=== PATIENT | female | born 1960 | race African-American/Black ===

== ENCOUNTER 2017-12-26 20:37 | Observation (INO) | payer BC ==
[2017-12-26 21:04] VITALS: BP 150/82; PULSE 93; RESP 18; TEMP 98.5; O2SAT 99
--- NOTE | 2017-12-26 22:08 | RADRPT ---
EXAM DATE: 12/26/2017 9:40 PM EDT AGE/SEX: 57 years / Female INDICATIONS: Left chest pain and shortness of breath. CLINICAL DATA: This is the patient's initial encounter. Patient reports that signs and symptoms have been present for 2 days and indicates a pain score of 7/10. MEDICAL/SURGICAL HISTORY: None. None. COMPARISON: No prior [place] exams available for comparison. FINDINGS: There is peribronchial thickening. Minimal subsegmental basilar opacity may represent scarring or ate lectasis. No significant effusion. Tortuous aorta. Heart size upper limits normal. No pneumothorax. CONCLUSION: Peribronchial thickening. Subsegmental basilar airspace disease without significant effusion. Electronically signed by: Roscoe Abdi MD 12/26/2017 10:06 PM EDT
[2017-12-26 23:26] VITALS: BP 146/80; PULSE 86; RESP 18; O2SAT 96
[2017-12-26] MEDS ORDERED: PRIL20TA2 PO (23:32)
[2017-12-26] MEDS ORDERED: LISI20TA3 PO (23:33)
[2017-12-26] MEDS ORDERED: FLUO-1 PO (23:33)
[2017-12-26 23:49] LABS: AUTOMATED NEUTROPHIL # 6.8 TH/MM3 (1.8-7.7); BASOPHIL # 0.1 TH/MM3 (0-0.2); BASOPHIL % 1.3 % (0.0-2.0); EOSINOPHIL # 0.2 TH/MM3 (0-0.4); EOSINOPHIL % 2.1 % (0.0-4.0); HEMATOCRIT 37.9 % (35.0-46.0); HEMOGLOBIN 12.6 GM/DL (11.6-15.3); LYMPH % 21.9 % (9.0-44.0); LYMPHOCYTE # 2.2 TH/MM3 (1.0-4.8); MEAN CELL VOLUME 83.8 FL (80.0-100.0); MEAN CORPUSCULAR HEMOGLOBIN 27.8 PG (27.0-34.0); MEAN CORPUSCULAR HGB CONC 33.2 % (32.0-36.0); MEAN PLATELET VOLUME 9.6 FL (7.0-11.0); MONO % 6.9 % (0.0-8.0); MONOCYTE # 0.7 TH/MM3 (0-0.9); NEUT % 67.8 % (16.0-70.0); PLATELET COUNT 210 TH/MM3 (150-450); RED BLOOD COUNT 4.53 MIL/MM3 (4.00-5.30)
[2017-12-26 23:58] LABS: PROTHROMBIN TIME - PATIENT 10.3 SEC (9.8-11.6)
--- NOTE | 2017-12-27 00:15 | PD ---
HPI Chief Complaint: Respiratory Symptoms Time Seen by Provider: 23:15 Travel History International Travel<30 days: No Contact w/Intl Traveler<30days: No History of Present Illness HPI The patient is a 57 year old female who presents to the [facility] emergency department with a history of left-sided chest pain that she reports began on Tuesday night. The patient reports that she arrived in the area on Tuesday from [place]. She reports that on Tuesday she began to have congestion, dry cough, sensation of wheezing. She attributed this to allergy symptoms and took an allergy reliever that was [id number]. She reports that the symptoms did not improve. She reports that she has had a clear rhinorrhea. She has not had any known fevers. She reports that she began to have a left-sided chest pain that is sharp in character on Tuesday night. She reports that it was constant on Tuesday, however now it is coming and going again. She reports having associated shortness of breath. She reports that she also had diaphoresis. She denies having any nausea or vomiting. She denies having any diarrhea. She reports that she has been moving her bowels regularly. She denies any personal history of coronary artery disease, DVT, or PE. She denies any family history of coronary artery disease. She does report smoking 1 pack of cigarettes per day. She also reports having a history of hypertension. She denies any prior history of diabetes or hyperlipidemia. She denies having any lower extremity edema, calf pain, or erythema. The patient reports that the pain at times radiates into the left side of her back. On review of systems otherwise, she denies having any neck pain, abdominal pain, diarrhea, urinary symptoms, or neurologic symptoms. [facility] Past Medical History Narrative Medical The patient's past medical history is significant for hypertension, acid reflux. GERD: Yes Hypertension: Yes Past Surgical History Narrative Surgical The patient's past surgical history is significant for a hysterectomy with oophorectomy for fibroids Gynecologic Surgery: Yes Hysterectomy: Yes Social History Alcohol Use: No Tobacco Use: Yes (5 cigarettes per day) Substance Use: No Allergies-Medications (Allergen,Severity, Reaction): Coded Allergies: Penicillins (Verified Allergy, Severe, 12/26/17) Sulfa (Sulfonamide Antibiotics) (Verified Allergy, Severe, 12/26/17) doxycycline (Verified Allergy, Severe, 12/26/17) THROAT SWELLING Reported Meds & Prescriptions Reported Meds & Active Scripts Active Reported Prozac (Fluoxetine HCl) 10 Mg Cap 10 Mg PO DAILY Lisinopril-Hctz 20-25 Mg Tab 1 Tab PO DAILY Prilosec (Omeprazole Magnesium) 20 Mg Tab 40 Mg PO DAILY Review of Systems Except as stated in HPI: all other systems reviewed are Neg General / Constitutional: No: Fever Eyes: No: Visual changes HENT: No: Headaches, Rhinorrhea, Congestion Cardiovascular: Positive: Chest Pain or Discomfort, Diaphoresis, Dyspnea on exertion Respiratory: Positive: Shortness of Breath Gastrointestinal: No: Nausea, Vomiting, Diarrhea, Abdominal Pain Genitourinary: No: Dysuria Musculoskeletal: No: Pain Skin: No Rash Neurologic: No: Weakness Psychiatric: No: Depression Endocrine: No: Polydipsia Hematologic/Lymphatic: No: Easy Bruising Physical Exam Narrative General: The patient is a well-developed well-nourished female in no acute distress Head and Neck exam: Head is normocephalic atraumatic. Eyes: EOMI, pupils are equal round and reactive to light. Nose: Midline septum with pink mucous membranes Mouth: Dentition unremarkable. Moist mucus membranes. Posterior oropharynx is not erythematous. No tonsillar hypertrophy. Uvula midline. Airway patent. Neck: No palpable lymphadenopathy. No nuchal rigidity. No thyromegaly. Cardiovascular: Regular rate and rhythm without murmurs, gallops, or rubs. No pulse deficit to the extremities on simultaneous auscultation and palpation of her radial artery. Lungs: Clear to auscultation bilaterally. No wheezes, rhonchi, or rales. Abdomen: Soft, without tenderness to palpation in all 4 quadrants of the abdomen. No guarding, rebound, or rigidity. Normal bowel sounds are audible. No tenderness on palpation of McBurney's point. Negative Mott sign. Extremities: No clubbing, cyanosis, or edema. 2+ pulses in all 4 extremities. No calf tenderness on palpation. Back: No spinous process tenderness to palpation. No costovertebral angle tenderness to palpation. Neurologic Exam: Grossly nonfocal. Skin Exam: No rash noted. Intact skin that is warm and dry. Data Data Last Documented VS Vital Signs Date Time Temp Pulse Resp B/P (MAP) Pulse Ox O2 Delivery O2 Flow Rate FiO2 12/26/17 23:26 94 18 95 Room Air 12/26/17 23:26 146/80 (102) 12/26/17 21:04 98.5 Orders Orders Electrocardiogram (12/26/17 21:08) Chest, Pa & Lat (12/26/17 21:08) Complete Blood Count With Diff (12/26/17 23:16) Comprehensive Metabolic Panel (12/26/17 23:16) Creatine Kinase (Cpk) (12/26/17 23:16) Ckmb (Isoenzyme) Profile (12/26/17 23:16) Troponin I (12/26/17 23:16) B-Type Natriuretic Peptide (12/26/17 23:16) Prothrombin Time / Inr (Pt) (12/26/17 23:16) Act Partial Throm Time (Ptt) (12/26/17 23:16) Lipase (12/26/17 23:16) Urinalysis - C+S If Indicated (12/26/17 23:16) Magnesium (Mg) (12/26/17 23:16) Iv Access Insert/Monitor (12/26/17 23:16) Ecg Monitoring (12/26/17 23:16) Oximetry (12/26/17 23:16) CKMB (12/26/17 23:32) CKMB% (12/26/17 23:32) Aspirin Chew (Aspirin Chew) (12/27/17 00:45) Nitroglycerin 2% Oint (Nitroglycerin 2% (12/27/17 00:45) Ct Pulmonary Angiogram (12/27/17 01:04) Iohexol 350 Inj (Omnipaque 350 Inj) (12/27/17 01:38) Admit Order (Ed Use Only) (12/27/17 01:57) Famotidine Inj (Pepcid Inj) (12/27/17 02:00) Labs Laboratory Tests Test 12/26/17 23:32 White Blood Count 10.0 TH/MM3 Red Blood Count 4.53 MIL/MM3 Hemoglobin 12.6 GM/DL Hematocrit 37.9 % Mean Corpuscular Volume 83.8 FL Mean Corpuscular Hemoglobin 27.8 PG Mean Corpuscular Hemoglobin Concent 33.2 % Red Cell Distribution Width 15.0 % Platelet Count 210 TH/MM3 Mean Platelet Volume 9.6 FL Neutrophils (%) (Auto) 67.8 % Lymphocytes (%) (Auto) 21.9 % Monocytes (%) (Auto) 6.9 % Eosinophils (%) (Auto) 2.1 % Basophils (%) (Auto) 1.3 % Neutrophils # (Auto) 6.8 TH/MM3 Lymphocytes # (Auto) 2.2 TH/MM3 Monocytes # (Auto) 0.7 TH/MM3 Eosinophils # (Auto) 0.2 TH/MM3 Basophils # (Auto) 0.1 TH/MM3 CBC Comment DIFF FINAL Differential Comment Prothrombin Time 10.3 SEC Prothromb Time International Ratio 1.0 RATIO Activated Partial Thromboplast Time 25.7 SEC Blood Urea Nitrogen 11 MG/DL Creatinine 0.87 MG/DL Random Glucose 99 MG/DL Total Protein 7.8 GM/DL Albumin 3.5 GM/DL Calcium Level 9.6 MG/DL Magnesium Level 2.3 MG/DL Alkaline Phosphatase 109 U/L Aspartate Amino Transf (AST/SGOT) 16 U/L Alanine Aminotransferase (ALT/SGPT) 20 U/L Total Bilirubin 0.4 MG/DL Sodium Level 139 MEQ/L Potassium Level 3.8 MEQ/L Chloride Level 105 MEQ/L Carbon Dioxide Level 24.7 MEQ/L Anion Gap 9 MEQ/L Estimat Glomerular Filtration Rate 81 ML/MIN Total Creatine Kinase 157 U/L Creatine Kinase MB 0.7 NG/ML Troponin I LESS THAN 0.02 NG/ML B-Type Natriuretic Peptide 2 PG/ML Lipase 76 U/L MDM Medical Decision Making Medical Screen Exam Complete: Yes Emergency Medical Condition: Yes Medical Record Reviewed: Yes Differential Diagnosis Acute coronary syndrome, versus pulmonary embolism, versus acid reflux, versus costochondritis, versus musculoskeletal strain, versus pancreatitis, versus anxiety disorder Narrative Course During the course of the patient's emergency department visit, the patient's history, examination, and differential diagnosis were reviewed with the patient. The patient was placed on a podiatric foot and ankle specialist with oximetry and frequent blood pressure monitoring. The patient had IV access obtained and blood work sent for analysis. The patient had an EKG done on arrival that shows a sinus rhythm heart rate of respiration is 89 ms, QTC [address] segment elevation is noted. T waves are inverted in V1. The patient was initially provided nitroglycerin 1 inch to the chest wall, aspirin 324 mg p.o. 1. The patient's laboratory studies were reviewed and remarkable for a CBC that is within normal limits, CMP is remarkable for GFR of 81, cardiac enzymes within normal limits, lipase 76, BNP 2, PT PTT within normal limits. Radiology studies were reviewed and remarkable for Last Impressions CT Angiography 12/27/17 0104 Signed Impressions: CONCLUSION: 1. There is poor opacification of the pulmonary arteries limiting the evaluati on for PE. If this requires further evaluation of VQ scan could be performed if clinically indicated. 2. No acute pulmonary infiltrates. Lung Scan-VQ Nuclear Medicine 12/27/17 0000 Signed Impressions: CONCLUSION: 1. No mismatches are identified. No evidence of pulmonary malignancy Chest X-Ray 12/26/17 2108 Signed Impressions: CONCLUSION: Peribronchial thickening. Subsegmental basilar airspace disease without signifi cant effusion. The patient will be admitted to the chest pain center for rule out serial cardiac enzyme protocol followed by consideration of stress testing. The patient's results were discussed with the patient, including the plan of care. I explained that further testing and/ or monitoring is indicated based on the patient's history, examination, and/ or laboratory findings. Therefore, I recommended admission for additional evaluation. The patient expressed understanding and was agreeable with this plan. The patient was admitted to the hospital in stable condition and sent to a bed under the care of [facility]. Diagnosis Primary Impression: Chest pain, rule out acute myocardial infarction Admitting Information Admitting Physician Requests: Margarita Payne MD Dec 27, 2017 00:15
[2017-12-27 00:19] LABS: ALT (GPT) 20 U/L (10-53)
[2017-12-27 00:23] LABS: ALKALINE PHOSPHATASE 109 U/L (45-117); TOTAL BILIRUBIN ADULT 0.4 MG/DL (0.2-1.0); TOTAL PROTEIN 7.8 GM/DL (6.4-8.2); TROPONIN I LESS THAN 0.02 NG/ML (0.02-0.05)
[2017-12-27 00:37] LABS: ALBUMIN 3.5 GM/DL (3.4-5.0); AST (GOT) 16 U/L (15-37); BICARBONATE 24.7 MEQ/L (21.0-32.0); BLOOD UREA NITROGEN 11 MG/DL (7-18); CALCIUM 9.6 MG/DL (8.5-10.1); CHLORIDE 105 MEQ/L (98-107); CREATININE 0.87 MG/DL (0.50-1.00); GLOMERULAR FILTRATION RATE 81 ML/MIN (>89); GLUCOSE,RANDOM 99 MG/DL (74-106); MAGNESIUM 2.3 MG/DL (1.5-2.5); SODIUM (NA) 139 MEQ/L (136-145)
[2017-12-27] MEDS ORDERED: ASPIRIN 81 MG CHEW TAB CHEW ONE (00:45)
[2017-12-27] MEDS ORDERED: NITROGLYCERIN 2% OINT 1 GM PACKET TOPICAL ONE (00:45)
[2017-12-27] MEDS ORDERED: IOHEXOL 350 MG/ML 10 ML VIAL (for RAD DIAG) IVCONTRAST ONE (01:38)
--- NOTE | 2017-12-27 01:53 | RADRPT ---
EXAM DATE: 12/27/2017 1:42 AM EDT AGE/SEX: 57 years / Female INDICATIONS: Chest pain with shorthness of breath. CLINICAL DATA: This is the patient's initial encounter. Patient reports that signs and symptoms have been present for 1 day and indicates a pain score of 10/10. MEDICAL/SURGICAL HISTORY: Hypertension. Gastroesophageal reflux disease. Hysterectomy. RADIATION DOSE: 23.38 CTDI (mGy) COMPARISON: No prior [place] exams available for comparison. TECHNIQUE: Volumetric scanning was performed using a multi-row detector CT scanner during bolus infu cristal of 70 ml Omnipaque 350 (iohexol) nonionic water-soluble contrast as a single exam dose. The marium a was post processed with a variety of visualization algorithms including full volume maximum intensi ty projection and sliding thin slab reformation. Using automated exposure control and adjustment of the mA and/or kV according to patient size, radiation dose was kept as low as reasonably achievable t o obtain optimal diagnostic quality images. FINDINGS: Pulmonary Arteries: Poor opacification of pulmonary arteries. Lung: No infiltrates seen. Effusion: None. Mediastinum: No evidence of mediastinal or hilar adenopathy. Other: The axilla is unremarkable. CONCLUSION: 1. There is poor opacification of the pulmonary arteries limiting the evaluation for PE. If this req uires further evaluation of VQ scan could be performed if clinically indicated. 2. No acute pulmonary infiltrates. Electronically signed by: Jin Anderson MD 12/27/2017 1:52 AM EDT
[2017-12-27] MEDS ORDERED: FAMOTIDINE 20 MG/2 ML VIAL IV PUSH SCH (02:00)
[2017-12-27] MEDS ORDERED: SODIUM CHLORIDE 0.9% FLUSH 10 ML FLUSH IV FLUSH PRN (03:00)
[2017-12-27] MEDS ORDERED: ACETAMINOPHEN 500 MG CPLT PO PRN (03:00)
[2017-12-27 04:20] LABS: BACTERIA, URINE OCC /hpf; BILIRUBIN, URINE NEG (NEG); BLOOD, URINE MOD (NEG); GLUCOSE,URINE NEG (NEG); KETONE, URINE NEG (NEG); MUCUS URINE FEW /lpf (OCC); NITRITE,URINE NEG (NEG); PH, URINE 6.5 (5.0-8.5); SQUAMOUS EPITHELIAL CELL URINE 21 /hpf (0-5); URINE COLOR YELLOW (YELLW/STRAW); URINE LEUKOCYTE ESTERASE MOD (NEG)
[2017-12-27 04:35] LABS: TROPONIN I LESS THAN 0.02 NG/ML (0.02-0.05)
[2017-12-27 06:38] VITALS: BP 136/64; PULSE 88; RESP 18; TEMP 98.4
[2017-12-27 07:15] LABS: TROPONIN I LESS THAN 0.02 NG/ML (0.02-0.05)
[2017-12-27 08:00] VITALS: BP 98/52; PULSE 98; RESP 20; TEMP 98.4; O2SAT 94
[2017-12-27] MEDS ORDERED: RESP: ALBUTEROL 2.5 MG/IPRATROPIUM 0.5 MG NEB (SCH) NEB ONE (08:30)
[2017-12-27 08:35] VITALS: PULSE 92
[2017-12-27] MEDS ORDERED: SODIUM CHLORIDE 0.9% FLUSH 10 ML FLUSH IV FLUSH SCH (09:00)
--- NOTE | 2017-12-27 10:25 | HHI.HP ---
HPI Primary Care Physician Unknown Chief Complaint Chest pain History of Present Illness This is a 57-year-old female history of hypertension that presents to ED via private vehicle with complaint of developing left-sided chest discomfort that began 4 days ago. It is intermittent. Lasts a few minutes. She has not really been short of breath but states she has had a nonproductive cough over the last few days. States that she drove with her from [place] 5 days ago. Denies swelling in legs. Denies inspirational chest discomfort. Denies fevers or chills. She denies diaphoresis and nausea. Review of Systems General: Patient denies fevers, chills. Recently drove from [place]. HEENT: Patient denies headache, sore throat, difficulty swallowing. Cardiovascular: Has the chest discomfort as mentioned above. Denies sensation of heart beating rapidly or irregularly. No syncope. Denies diaphoresis. Respiratory: She has had a nonproductive cough. Denies wheezing or hemoptysis. Denies shortness of breath or inspirational chest discomfort. GI: Patient denies nausea, vomiting, diarrhea, abdominal pain, bloody stools. Musculoskeletal: Patient denies joint pain or edema. Denies calf pain or edema. Neurovascular: Patient denies numbness, tingling, weakness in extremities. Denies headache. Endocrine: Denies polyuria and polydipsia. Hematologic: Denies easy bruising. Skin: Denies rash or itching. Past Family Social History Allergies: Coded Allergies: Penicillins (Verified Allergy, Severe, 12/26/17) Sulfa (Sulfonamide Antibiotics) (Verified Allergy, Severe, 12/26/17) doxycycline (Verified Allergy, Severe, 12/26/17) THROAT SWELLING Past Medical History Hypertension and GERD. Tobacco abuse. Denies hyperlipidemia and known CAD. Past Surgical History Hysterectomy. Reported Medications Reported Meds & Active Scripts Active Reported Prozac (Fluoxetine HCl) 10 Mg Cap 10 Mg PO DAILY Lisinopril-Hctz 20-25 Mg Tab 1 Tab PO DAILY Prilosec (Omeprazole Magnesium) 20 Mg Tab 40 Mg PO DAILY Active Ordered Medications Current Medications Medications (Trade) Dose Ordered Sig/Shayy Route Start Time Stop Time Status Last Admin (Pepcid Inj) 20 mg NOW IV PUSH 12/27/17 02:00 (NS Flush) 2 ml UNSCH PRN IV FLUSH 12/27/17 03:00 (NS Flush) 2 ml BID IV FLUSH 12/27/17 09:00 (Tylenol) 500 mg Q4H PRN PO 12/27/17 03:00 (Duoneb Neb) 1 ampule Q4HR NEB PRN NEB 12/27/17 12:00 Family History Denies family history of CAD. Social History Smokes 1 pack of cigarettes daily. Denies alcohol or illicit drug use. Physical Exam Vital Signs Vital Signs Date Time Temp Pulse Resp B/P (MAP) Pulse Ox O2 Delivery O2 Flow Rate FiO2 12/27/17 08:00 98.4 98 20 98/52 (67) 94 12/27/17 06:38 98.4 88 18 136/64 (88) 12/27/17 03:51 12/26/17 23:26 94 18 95 Room Air 12/26/17 23:26 86 18 146/80 (102) 96 Room Air 12/26/17 21:04 98.5 93 18 150/82 (104) 99 Physical Exam GENERAL: This is a well-nourished, well-developed patient, in no apparent distress. Patient speaks in clear complete sentences. Patient is pleasant. HEENT: Head is atraumatic and normocephalic. Neck is supple without lymphadenopathy and trachea is midline. No JVD or carotid bruits. CARDIOVASCULAR: Regular rate and rhythm without murmurs, gallops, or rubs. RESPIRATORY: Clear to auscultation. Breath sounds equal bilaterally. No wheezes , rales, or rhonchi. Chest wall is nontender. No use of accessory muscles. GASTROINTESTINAL: Abdomen is nontender, nondistended. Abdomen soft. No obvious pulsatile mass or bruit. No CVA tenderness. Strong femoral pulses bilaterally. Normal bowel sounds in all quadrants. MUSCULOSKELETAL: Patient is moving upper and lower extremities freely. No calf tenderness or edema, no Homans sign. Strong pulses in upper and lower extremities. NEUROLOGICAL: Patient is alert and oriented. Cranial nerves 2-12 are grossly intact. No focal deficits and speech is clear. SKIN: No rash and turgor is normal. Laboratory Laboratory Tests Test 12/26/17 23:32 12/27/17 02:50 12/27/17 03:40 12/27/17 06:05 White Blood Count 10.0 Red Blood Count 4.53 Hemoglobin 12.6 Hematocrit 37.9 Mean Corpuscular Volume 83.8 Mean Corpuscular Hemoglobin 27.8 Mean Corpuscular Hemoglobin Concent 33.2 Red Cell Distribution Width 15.0 Platelet Count 210 Mean Platelet Volume 9.6 Neutrophils (%) (Auto) 67.8 Lymphocytes (%) (Auto) 21.9 Monocytes (%) (Auto) 6.9 Eosinophils (%) (Auto) 2.1 Basophils (%) (Auto) 1.3 Neutrophils # (Auto) 6.8 Lymphocytes # (Auto) 2.2 Monocytes # (Auto) 0.7 Eosinophils # (Auto) 0.2 Basophils # (Auto) 0.1 CBC Comment DIFF FINAL Differential Comment Prothrombin Time 10.3 Prothromb Time International Ratio 1.0 Activated Partial Thromboplast Time 25.7 Blood Urea Nitrogen 11 Creatinine 0.87 Random Glucose 99 Total Protein 7.8 Albumin 3.5 Calcium Level 9.6 Magnesium Level 2.3 Alkaline Phosphatase 109 Aspartate Amino Transf (AST/SGOT) 16 Alanine Aminotransferase (ALT/SGPT) 20 Total Bilirubin 0.4 Sodium Level 139 Potassium Level 3.8 Chloride Level 105 Carbon Dioxide Level 24.7 Anion Gap 9 Estimat Glomerular Filtration Rate 81 Total Creatine Kinase 157 130 130 Creatine Kinase MB 0.7 LESS THAN 0.5 1.0 Troponin I LESS THAN 0.02 LESS THAN 0.02 LESS THAN 0.02 B-Type Natriuretic Peptide 2 Lipase 76 Urine Color YELLOW Urine Turbidity HAZY Urine pH 6.5 Urine Specific [place] GREATER THAN 1.050 Urine Protein 30 Urine Glucose (UA) NEG Urine Ketones NEG Urine Occult Blood MOD Urine Nitrite NEG Urine Bilirubin NEG Urine Urobilinogen LESS THAN 2.0 Urine Leukocyte Esterase MOD Urine RBC 33 Urine WBC 7 Urine Squamous Epithelial Cells 21 Urine Bacteria OCC Urine Mucus FEW Urine Yeast (Budding) RARE Microscopic Urinalysis Comment CULT NOT INDICATED Test 12/27/17 09:25 D-Dimer Quantitative (PE/DVT) 1.41 Result Diagram: 12/26/17 2332 12/26/17 2332 Imaging Last [address] Angiography 12/27/17 010 Signed Impressions: CONCLUSION: 1. There is poor opacification of the pulmonary arteries limiting the evaluati on for PE. If this requires further evaluation of VQ scan could be performed if clinically indicated. 2. No acute pulmonary infiltrates. Chest X-Ray 12/26/172107 Signed Impressions: CONCLUSION: Peribronchial thickening. Subsegmental basilar airspace disease without signifi cant effusion. Course EKGs are sinus rhythm without significant ST segment depressions or elevations. Caprini VTE Risk Assessment Caprini VTE Risk Assessment: No/Low Risk (score <= 1) Caprini Risk Assessment Model Point Value = 1 Point Value = 2 Point Value = 3 Point Value = 5 Age 41-60 Minor surgery BMI > 25 kg/m2 Swollen legs Varicose veins or History of unexplained or recurrent spontaneous Oral contraceptives or hormone replacement Sepsis (< 1 month) Serious lung disease, including pneumonia (< 1 month) Abnormal pulmonary function Acute myocardial infarction Congestive heart failure (< 1 month) History of inflammatory bowel disease Medical patient at bed rest Age 61-74 Arthroscopic surgery Major open surgery (> 45 min) Laparoscopic surgery (> 45 min) Malignancy Confined to bed (> 72 hours) Immobilizing plaster cast Central venous access Age >= 75 History of VTE Family history of VTE Factor V Leiden Prothrombin [id number] Lupus anticoagulant Anticardiolipin antibodies Elevated serum homocysteine Heparin-induced thrombocytopenia Other congenital or acquired thrombophilia Stroke (< 1 month) Elective arthroplasty Hip, pelvis, or leg fracture Acute spinal cord injury (< 1 month) Prophylaxis Regimen Total Risk Factor Score Risk Level Prophylaxis Regimen 0-1 Low Early ambulation 2 Moderate Order ONE of the following: *Sequential Compression Device (SCD) *Heparin 5000 units SQ BID 3-4 Higher Order ONE of the following medications: *Heparin 5000 units SQ TID *Enoxaparin/Lovenox 40 mg SQ daily (WT < 150 kg, CrCl > 30 mL/min) *Enoxaparin/Lovenox 30 mg SQ daily (WT < 150 kg, CrCl > 10-29 mL/min) *Enoxaparin/Lovenox 30 mg SQ BID (WT < 150 kg, CrCl > 30 mL/min) AND/OR *Sequential Compression Device (SCD) 5 or more Highest Order ONE of the following medications: *Heparin 5000 units SQ TID (Preferred with Epidurals) *Enoxaparin/Lovenox 40 mg SQ daily (WT < 150 kg, CrCl > 30 mL/min) *Enoxaparin/Lovenox 30 mg SQ daily (WT < 150 kg, CrCl > 10-29 mL/min) *Enoxaparin/Lovenox 30 mg SQ BID (WT < 150 kg, CrCl > 30 mL/min) AND *Sequential Compression Device (SCD) Assessment and Plan Assessment and Plan * Chest pain: Patient has had serial cardiac enzymes and EKGs for ruling out purposes. She has been seen by Dr. Vail of cardiology in the chest pain center. She will undergo a Bhupinder protocol ETT and we will get a d-dimer. Further plan pending results of d-dimer and ETT. Likely patient will be discharged if PE is ruled out and stress test is nonischemic with instructions to follow-up with PCP. Return to ED for interval issues. * Hypertension: Continue medication. * Tobacco abuse: Patient has been counseled on importance of smoking cessation. Patient is stable at this time. She is agreeable to this plan. Sivakumar Smith Dec 27, 2017 10:25
[2017-12-27 12:00] VITALS: BP 118/67; PULSE 90; RESP 20; TEMP 98.1; O2SAT 95
[2017-12-27] MEDS ORDERED: RESP: ALBUTEROL 2.5 MG/IPRATROPIUM 0.5 MG NEB (PRN) NEB (12:00)
--- NOTE | 2017-12-27 12:52 | TR ---
Date Performed: 12/27/2017 Time Performed: 10:05:31 DOCTOR: Juli Vail DRUG LIST: CLINICAL HISTORY: REASON FOR TEST: REASON FOR ENDING: OBSERVATION: CONCLUSION: CHEPE PROTOCOL. NO CP. TEST STOPPED AFTER EXCEEDING GOAL HR SECONDARY TO SOB AND LE G FATIGUE.Maximum EN=156 Max Predicted BV=886 Maximum KH=729/80 Total Exercise Time=3:00 COMMENTS: No ischemia
--- NOTE | 2017-12-27 15:49 | RADRPT ---
EXAM DATE: 12/27/2017 2:17 PM EDT AGE/SEX: 57 years / Female INDICATIONS: Short of breath and left sided chest pain. CLINICAL DATA: This is the patient's initial encounter. Patient reports that signs and symptoms have been present for 1 day and indicates a pain score of 3/10. MEDICAL/SURGICAL HISTORY: Hypertension. Smoker. Hysterectomy. COMPARISON: No prior [place] exams available for comparison. DOSE: 1.5 mCi Tc99m DTPA aerosol 8.1 mCi Tc99m MAA IV TECHNIQUE: Following five minutes of tidal breathing of DTPA aerosol, planar images of the lungs wer e performed in eight projections. The patient was then injected with MAA, and eight-view perfusion s can was performed. FINDINGS: There is a homogeneous pattern of aerosol delivery to the periphery of both lungs. No focal ventilat ory defects are seen. The perfusion lung scan demonstrates a homogenous pattern of uptake in both lungs. No segmental or s ubsegmental defects are seen. CONCLUSION: 1. No mismatches are identified. No evidence of pulmonary malignancy Electronically signed by: Corbin Green MD 12/27/2017 3:47 PM EDT
--- NOTE | 2017-12-27 15:58 | HHI.DCPOC ---
Discharge Care Plan Diagnosis: (1) Chest pain (2) Hypertension Goals to Promote Your Health * To prevent worsening of your condition and complications * To maintain your health at the optimal level Directions to Meet Your Goals Take your medications as prescribed Follow your dietary instruction Follow activity as directed Keep your appointments as scheduled Take your immunizations and boosters as scheduled If your symptoms worsen call your PCP, if no PCP go to Urgent Care Center or Emergency Room Smoking is Dangerous to Your Health. Avoid second hand smoke Call the 24-hour hour crisis hotline for domestic abuse at Sivakumar Smith Dec 27, 2017 15:58
[2017-12-27 16:00] VITALS: BP 114/60; PULSE 109; RESP 20; TEMP 97.6; O2SAT 98
--- NOTE | 2017-12-27 16:01 | HHI.DCPOC ---
Discharge Care Plan Diagnosis: (1) Tobacco abuse (2) Chest pain (3) Hypertension Goals to Promote Your Health * To prevent worsening of your condition and complications * To maintain your health at the optimal level Directions to Meet Your Goals Take your medications as prescribed Follow your dietary instruction Follow activity as directed Keep your appointments as scheduled Take your immunizations and boosters as scheduled If your symptoms worsen call your PCP, if no PCP go to Urgent Care Center or Emergency Room Smoking is Dangerous to Your Health. Avoid second hand smoke Call the 24-hour hour crisis hotline for domestic abuse at [facility] Dec 27, 2017 16:01
--- NOTE | 2017-12-27 17:27 | EKG ---
Date Performed: 12/27/2017 Time Performed: 06:01:56 PTAGE: 57 years EKG: Sinus rhythm PROBABLE INFERIOR MYOCARDIAL INFARCTION ABNORMAL ECG Since PREVIOUS TRACING , no significant change noted PREVIOUS TRACIN12/26/2017 21.15 DOCTOR: Juli Vail Interpretating Date/Time 12/27/2017 17:25:50
--- NOTE | 2017-12-27 17:28 | EKG ---
Date Performed: 12/27/2017 Time Performed: 03:46:19 PTAGE: 57 years EKG: Sinus rhythm NORMAL ECG Since PREVIOUS TRACING , no significant change noted PREVIOUS TRACIN12/26/2017 21.15 DOCTOR: Juli Vail Interpretating Date/Time 12/27/2017 17:26:26
--- NOTE | 2017-12-27 17:30 | EKG ---
Date Performed: 12/26/2017 Time Performed: 21:15:07 PTAGE: 57 years EKG: Sinus rhythm NORMAL ECG NO PREVIOUS TRACING DOCTOR: Juli Vail Interpretating Date/Time 12/27/2017 17:29:41
== END 2017-12-27 17:58 | disposition home or self-care (01) ==
LOC: NEPC 20:37 → NEDA 12-27 01:59 → NEPHCDU 12-27 04:10
PROVIDERS: ADMIT Internal Medicine Cardiovascular Disease; ATTEND Internal Medicine Cardiovascular Disease
DX: R07.89 Other chest pain (principal); R06.2 Wheezing; R05 Cough; J34.89 Other specified disorders of nose and nasal sinuses; R06.02 Shortness of breath; R61 Generalized hyperhidrosis; F17.210 Nicotine dependence, cigarettes, uncomplicated; I10 Essential (primary) hypertension; K21.9 Gastro-esophageal reflux disease without esophagitis; Z79.899 Other long term (current) drug therapy; R94.31 Abnormal electrocardiogram [ECG] [EKG]
CPT/HCPCS: 71046; 71275; 78582; 80053; 81001; 82550; 82552; 83690; 83735; 83880; 84484; 85025; 85379; 85610; 85730; 93005; 93017; 94664; 99285; A9540; A9567; G0378; Q9967